=== PATIENT | female | born 1955 | race Two or more races ===

== ENCOUNTER 2021-09-17 17:31 | Inpatient (IN) | payer BC, MEDICARE ==
[~2021-09-17] VITALS: Ht 157.5 cm; Wt 71.4 kg
[2021-09-17] MEDS ORDERED: ONDANSETRON HCL 4 MG/2 ML VIAL IV PRN (23:00)
[2021-09-17] MEDS ORDERED: ACETAMINOPHEN 500 MG TAB PO PRN (23:00)
[2021-09-17] MEDS ORDERED: HYDROcodone-ACET 5/325MG TAB PO PRN (23:00)
[2021-09-17] MEDS ORDERED: DOCUSATE SOD 100 MG CAP PO PRN (23:00)
[2021-09-17] MEDS ORDERED: NITROGLYCERIN 0.4 MG SL TAB SL PRN (23:45)
[2021-09-17] MEDS ORDERED: MORPHINE SULFATE INJECTION 2 MG/ML SYRG IV PRN (23:45)
[2021-09-17 23:50] LABS: Basophils # (auto) 0 10 ^3/uL (0-0.2); Basophils % (auto) 0.5 % (0.0-2.0); Eosinophils # (auto) 0 10 ^3/uL (0-0.8); Eosinophils % (auto) 0.2 % (0.0-7.0); Hematocrit 40.4 % (36.0-46.0); Hemoglobin 13.4 g/dL (12.2-16.2); Lymphocytes # (auto) 1.5 10 ^3/uL (0.4-5.4); Lymphocytes % (auto) 31.6 % (10.0-50.0); Mean Corpuscular Hemoglobin 27.9 pg (28.0-32.0); Mean Corpuscular Hgb Conc. 33.1 g/dL (32.0-36.0); Mean Corpuscular Volume 84.1 fL (80.0-100.0); Monocytes # (auto) 0.4 10 ^3/uL (0-1.3); Monocytes % (auto) 8.8 % (0.0-12.0); Neutrophils # (auto) 2.8 10 ^3/uL (1.6-8.6); Neutrophils % (auto) 58.9 % (37.0-80.0); Red Cell Distribution Width 16.2 % (11.8-14.3); White Blood Cell 4.8 10^3/uL (4.4-10.8)
[2021-09-18 00:21] LABS: Albumin 3.8 g/dL (3.4-5.0); Calcium 8.6 mg/dL (8.5-10.1); Magnesium 2.7 mg/dL (1.6-2.6); Potassium 3.2 mmol/L (3.5-5.1)
[2021-09-18 00:28] LABS: BUN/Creatinine Ratio 19.3; Bilirubin, Total 0.4 mg/dL (0.2-1.0); Total Protein 7.7 g/dL (6.4-8.2)
[2021-09-18 02:35] VITALS: BP 126/71
[2021-09-18] MEDS ORDERED: DexAMETHasone SOD PHOS 10MG/1ML VIAL INJ IV ONE (03:00)
[2021-09-18] MEDS ORDERED: cefTRIAXone 1GM/50ML D5W 50 ML IV ONE (03:00)
[2021-09-18] MEDS ORDERED: AZITHROMYCIN 500MG/ 250ML 250 ML IV ONE (03:00)
[2021-09-18] MEDS: SODIUM CHLORIDE 0.9% 1,000 ML IV SCH ×3 (03:20→20:00)
[2021-09-18] MEDS: ACETAMINOPHEN 325 MG TAB PO PRN (03:22)
[2021-09-18] MEDS: BUDESONIDE (INHALATION) 180 MCG IH IN SCH ×2 (07:28→22:00)
[2021-09-18] MEDS: ALBUTEROL SULF HFA 90MCG INH 200DOSE IN PRN (07:28)
[2021-09-18 07:39] LABS: Basophils # (auto) 0 10 ^3/uL (0-0.2); Basophils % (auto) 0.4 % (0.0-2.0); Eosinophils # (auto) 0 10 ^3/uL (0-0.8); Hematocrit 37.7 % (36.0-46.0); Hemoglobin 12.3 g/dL (12.2-16.2); Lymphocytes # (auto) 1.2 10 ^3/uL (0.4-5.4); Lymphocytes % (auto) 30.5 % (10.0-50.0); Mean Corpuscular Hemoglobin 27.6 pg (28.0-32.0); Mean Corpuscular Hgb Conc. 32.8 g/dL (32.0-36.0); Mean Corpuscular Volume 84.3 fL (80.0-100.0); Monocytes # (auto) 0.2 10 ^3/uL (0-1.3); Monocytes % (auto) 4.2 % (0.0-12.0); Neutrophils # (auto) 2.5 10 ^3/uL (1.6-8.6); Neutrophils % (auto) 64.9 % (37.0-80.0); Nucleated Red Blood Cells % 0.1 %; Red Blood Cells 4.47 10^6/uL (4.0-5.20); Red Cell Distribution Width 16.5 % (11.8-14.3); White Blood Cell 3.8 10^3/uL (4.4-10.8)
[2021-09-18 07:51] LABS: Albumin 3.3 g/dL (3.4-5.0); Calcium 8.5 mg/dL (8.5-10.1); Potassium 3.2 mmol/L (3.5-5.1)
[2021-09-18 07:56] LABS: BUN/Creatinine Ratio 21.9; Bilirubin, Total 0.3 mg/dL (0.2-1.0); Total Protein 6.5 g/dL (6.4-8.2)
[2021-09-18 09:00] VITALS: BP 118/63
[2021-09-18] MEDS: CHOLECALCIFEROL (VITD3) 2,000 UNIT CAP/TAB PO SCH (10:00)
[2021-09-18] MEDS: DOXYCYCLINE 100MG/250ML 250 ML IV SCH ×2 (10:00→21:34)
[2021-09-18] MEDS: ZINC SULFATE 220mg CAP or TAB PO SCH (10:00)
[2021-09-18] MEDS: ENOXAPARIN SOD 40 MG/0.4 ML SYRINGE SC SCH (10:00)
[2021-09-18] MEDS: MULTIPLE VITAMIN TAB PO SCH (10:00)
[2021-09-18] MEDS: FAMOTIDINE (10MG/ML) 2ML VL IV SCH ×2 (10:00→21:34)
[2021-09-18] MEDS: ASCORBIC ACID 1,000 MG TAB PO SCH (10:00)
[2021-09-18 12:25] VITALS: BP 118/63
[2021-09-18 13:00] VITALS: BP 116/59
[2021-09-18 17:00] VITALS: BP 112/61
[2021-09-18 22:00] VITALS: BP 110/67
[2021-09-19] MEDS: ACETAMINOPHEN 325 MG TAB PO PRN ×3 (03:14→21:23)
[2021-09-19 05:00] VITALS: BP 126/62
[2021-09-19] MEDS: BUDESONIDE (INHALATION) 180 MCG IH IN SCH ×2 (07:25→21:29)
[2021-09-19 09:00] VITALS: BP 128/73
[2021-09-19] MEDS: DexAMETHasone SOD PHOS 10MG/1ML VIAL INJ IV SCH (11:06)
[2021-09-19] MEDS: FAMOTIDINE (10MG/ML) 2ML VL IV SCH ×2 (11:06→21:23)
[2021-09-19] MEDS: cefTRIAXone 1GM/50ML D5W 50 ML IV SCH (11:06)
[2021-09-19] MEDS: CHOLECALCIFEROL (VITD3) 2,000 UNIT CAP/TAB PO SCH (11:07)
[2021-09-19] MEDS: ENOXAPARIN SOD 40 MG/0.4 ML SYRINGE SC SCH (11:07)
[2021-09-19] MEDS: ASCORBIC ACID 1,000 MG TAB PO SCH (11:07)
[2021-09-19] MEDS: ZINC SULFATE 220mg CAP or TAB PO SCH (11:07)
[2021-09-19] MEDS: MULTIPLE VITAMIN TAB PO SCH (11:07)
[2021-09-19 12:30] VITALS: BP 148/81
[2021-09-19] MEDS: DOXYCYCLINE 100MG/250ML 250 ML IV SCH ×2 (12:50→21:23)
[2021-09-19 17:00] VITALS: BP 154/78
[2021-09-19 22:00] VITALS: BP 118/64
[2021-09-20] MEDS: SODIUM CHLORIDE 0.9% 1,000 ML IV SCH (00:54)
[2021-09-20 05:00] VITALS: BP 132/74
[2021-09-20] MEDS: ALBUTEROL SULF HFA 90MCG INH 200DOSE IN PRN (06:00)
[2021-09-20] MEDS: BUDESONIDE (INHALATION) 180 MCG IH IN SCH (06:00)
[2021-09-20 09:00] VITALS: BP 144/80
[2021-09-20] MEDS: cefTRIAXone 1GM/50ML D5W 50 ML IV SCH (09:21)
[2021-09-20] MEDS: ACETAMINOPHEN 325 MG TAB PO PRN (09:22)
[2021-09-20] MEDS: DexAMETHasone SOD PHOS 10MG/1ML VIAL INJ IV SCH (09:44)
[2021-09-20] MEDS: FAMOTIDINE (10MG/ML) 2ML VL IV SCH (09:46)
[2021-09-20] MEDS: MULTIPLE VITAMIN TAB PO SCH (09:46)
[2021-09-20] MEDS: ASCORBIC ACID 1,000 MG TAB PO SCH (09:46)
[2021-09-20] MEDS: DOXYCYCLINE 100MG/250ML 250 ML IV SCH (09:46)
[2021-09-20] MEDS: ZINC SULFATE 220mg CAP or TAB PO SCH (09:46)
[2021-09-20] MEDS: CHOLECALCIFEROL (VITD3) 2,000 UNIT CAP/TAB PO SCH (09:47)
[2021-09-20] MEDS: ENOXAPARIN SOD 40 MG/0.4 ML SYRINGE SC SCH (09:48)
[2021-09-20 13:00] VITALS: BP 140/72
[2021-09-20 15:04] VITALS: BP 140/72
== END 2021-09-20 16:57 | disposition home or self-care (01) | DRG 177 ==
LOC: ER 17:31 → OVERFLOW 23:45 → EAST 09-18 04:59
PROVIDERS: ADMIT Nurse Practitioner Family; ATTEND Internal Medicine
DX: U07.1 COVID-19 (principal); J12.82 Pneumonia due to coronavirus disease 2019; N17.9 Acute kidney failure, unspecified; I10 Essential (primary) hypertension; J45.909 Unspecified asthma, uncomplicated; F41.0 Panic disorder [episodic paroxysmal anxiety]; R09.02 Hypoxemia; Z96.651 Presence of right artificial knee joint; M17.10 Unilateral primary osteoarthritis, unspecified knee; F41.9 Anxiety disorder, unspecified; R55 Syncope and collapse; Z80.0 Family history of malignant neoplasm of digestive organs; Z80.3 Family history of malignant neoplasm of breast; Z81.8 Family history of other mental and behavioral disorders; Z85.3 Personal history of malignant neoplasm of breast
CPT/HCPCS: 36415; 70450; 71045; 71275; 80053; 83036; 83605; 83735; 84484; 85025; 85379; 87040; 87426; 93005; 93306; 93970; 94640; G0378; J0696; J1100; J3490

== ENCOUNTER 2021-09-23 07:28 | Inpatient (IN) | payer BC, MEDICARE ==
[~2021-09-23] VITALS: Ht 157.5 cm; Wt 62.6 kg
[2021-09-23 08:09] LABS: Basophils # (auto) 0 10 ^3/uL (0-0.2); Basophils % (auto) 0.3 % (0.0-2.0); Eosinophils # (auto) 0 10 ^3/uL (0-0.8); Hematocrit 42.1 % (36.0-46.0); Hemoglobin 14.1 g/dL (12.2-16.2); Lymphocytes # (auto) 1.4 10 ^3/uL (0.4-5.4); Lymphocytes % (auto) 15.4 % (10.0-50.0); Mean Corpuscular Hgb Conc. 33.5 g/dL (32.0-36.0); Mean Corpuscular Volume 83.5 fL (80.0-100.0); Monocytes # (auto) 0.4 10 ^3/uL (0-1.3); Monocytes % (auto) 4.6 % (0.0-12.0); Neutrophils # (auto) 7.3 10 ^3/uL (1.6-8.6); Neutrophils % (auto) 79.7 % (37.0-80.0); Nucleated Red Blood Cells % 0.1 %; Red Blood Cells 5.04 10^6/uL (4.0-5.20); Red Cell Distribution Width 16.4 % (11.8-14.3); White Blood Cell 9.1 10^3/uL (4.4-10.8)
[2021-09-23] MEDS ORDERED: ACETAMINOPHEN 500 MG TAB PO ONE (08:15)
[2021-09-23 09:16] LABS: Albumin 3.3 g/dL (3.4-5.0); BUN/Creatinine Ratio 23.4; Bilirubin, Total 0.4 mg/dL (0.2-1.0); Calcium 8.8 mg/dL (8.5-10.1); Total Protein 7.6 g/dL (6.4-8.2)
[2021-09-23 09:23] LABS: Potassium 2.8 mmol/L (3.5-5.1)
[2021-09-23] MEDS ORDERED: cefTRIAXone 1GM/50ML D5W 50 ML IV ONE (10:30)
[2021-09-23] MEDS ORDERED: DexAMETHasone SOD PHOS 10MG/1ML VIAL INJ IV ONE (10:30)
[2021-09-23] MEDS ORDERED: DOXYCYCLINE 100MG/250ML 250 ML IV ONE (10:30)
[2021-09-23] MEDS ORDERED: IPRATROPIUM BROM 0.5 MG/2.5ML INH SOL NEB PRN (17:00)
[2021-09-23] MEDS ORDERED: ACETAMINOPHEN 500 MG TAB PO PRN (17:00)
[2021-09-23] MEDS ORDERED: SODIUM CHLORIDE 0.9% 500 ML IV ONE (17:00)
[2021-09-23] MEDS ORDERED: SOD CHL 0.9%/ KCL 40MEQ 1,000 ML IV ONE (17:00)
[2021-09-23] MEDS ORDERED: DOCUSATE CALCIUM 240 MG CAP PO PRN (17:00)
[2021-09-23] MEDS ORDERED: MORPHINE SULFATE INJECTION 2 MG/ML SYRG IV PRN ×2 (17:00)
[2021-09-23] MEDS ORDERED: REMDESIVIR PER PHARMACY 0 ML IV SCH (17:00)
[2021-09-23] MEDS ORDERED: NITROGLYCERIN 0.4 MG SL TAB SL PRN (17:00)
[2021-09-23] MEDS ORDERED: hydrALAZINE HCL 20 MG/ML VL IV PRN (17:00)
[2021-09-23] MEDS ORDERED: REMDESIVIR 200 MG in NS 210ml LOADING DOSE ADULT IV ONE (18:00)
[2021-09-23 20:00] VITALS: BP 142/70
[2021-09-23] MEDS: ALBUTEROL SULF HFA 90MCG INH 200DOSE IN PRN (20:11)
[2021-09-23] MEDS: BUDESONIDE (INHALATION) 180 MCG IH IN SCH (20:11)
[2021-09-23 22:00] VITALS: BP 142/70
[2021-09-23] MEDS: CLINDAMYCIN 300MG IV 50 ML IV SCH (22:15)
[2021-09-23] MEDS: ENOXAPARIN SOD 40 MG/0.4 ML SYRINGE SC SCH (22:15)
[2021-09-24 05:15] VITALS: BP 118/69
[2021-09-24] MEDS: CLINDAMYCIN 300MG IV 50 ML IV SCH (05:56)
[2021-09-24 06:10] LABS: Basophils # (auto) 0 10 ^3/uL (0-0.2); Basophils % (auto) 0.1 % (0.0-2.0); Eosinophils # (auto) 0 10 ^3/uL (0-0.8); Hematocrit 35.2 % (36.0-46.0); Lymphocytes % (auto) 13.7 % (10.0-50.0); Mean Corpuscular Hemoglobin 28.2 pg (28.0-32.0); Mean Corpuscular Hgb Conc. 34.1 g/dL (32.0-36.0); Mean Corpuscular Volume 82.6 fL (80.0-100.0); Monocytes # (auto) 0.4 10 ^3/uL (0-1.3); Monocytes % (auto) 5.8 % (0.0-12.0); Neutrophils # (auto) 5.7 10 ^3/uL (1.6-8.6); Neutrophils % (auto) 80.4 % (37.0-80.0); Red Blood Cells 4.26 10^6/uL (4.0-5.20); Red Cell Distribution Width 16.1 % (11.8-14.3); White Blood Cell 7.1 10^3/uL (4.4-10.8)
[2021-09-24 06:30] LABS: Potassium 3.7 mmol/L (3.5-5.1)
[2021-09-24 06:53] LABS: Albumin 2.4 g/dL (3.4-5.0); BUN/Creatinine Ratio 38.8; Bilirubin, Total 0.3 mg/dL (0.2-1.0); CRP High Sensitivity 11.1 mg/dL (< 0.3); Calcium 7.6 mg/dL (8.5-10.1); Magnesium 2.3 mg/dL (1.6-2.6); Total Protein 5.7 g/dL (6.4-8.2)
[2021-09-24] MEDS: ALBUTEROL SULF HFA 90MCG INH 200DOSE IN PRN ×2 (07:22→19:28)
[2021-09-24] MEDS: BUDESONIDE (INHALATION) 180 MCG IH IN SCH ×2 (07:22→19:21)
[2021-09-24 07:47] LABS: Thyroid Stimulating Hormone 0.49 uIU/mL (0.358-3.74)
[2021-09-24 07:57] LABS: Urine Bacteria NONE SEEN /hpf (None Seen); Urine Blood Negative /uL (Negative); Urine Specific Gravity 1.028 (1.001-1.035); Urine WBC 40 /hpf (0 - 5)
[2021-09-24 09:00] VITALS: BP 141/72
[2021-09-24] MEDS: ZINC SULFATE 220mg CAP or TAB PO SCH (09:05)
[2021-09-24] MEDS: DexAMETHasone SOD PHOS 10MG/1ML VIAL INJ IV SCH (09:05)
[2021-09-24] MEDS: AZITHROMYCIN 500MG/ 250ML 250 ML IV SCH (09:05)
[2021-09-24] MEDS: ASCORBIC ACID 1,000 MG TAB PO SCH (09:06)
[2021-09-24] MEDS: PANTOPRAZOLE 40 MG TAB PO SCH (09:06)
[2021-09-24] MEDS: CHOLECALCIFEROL (VITD3) 2,000 UNIT CAP/TAB PO SCH (09:06)
[2021-09-24] MEDS: ENOXAPARIN SOD 40 MG/0.4 ML SYRINGE SC SCH ×2 (09:06→22:03)
[2021-09-24] MEDS: ONDANSETRON HCL 4 MG/2 ML VIAL IV PRN (09:23)
[2021-09-24] MEDS ORDERED: LOSA25TA38 PO (09:56)
[2021-09-24] MEDS ORDERED: CAR3125T PO (09:56)
[2021-09-24] MEDS ORDERED: OMEP20TA PO (09:56)
[2021-09-24] MEDS ORDERED: LEV50T PO (09:56)
[2021-09-24 12:30] VITALS: BP 130/66
[2021-09-24] MEDS ORDERED: LEVOTHYROXINE SODIUM 50 MCG TAB PO ONE (13:00)
[2021-09-24] MEDS: REMDESIVIR 100mg 100 MG in SODIUM CHL 0.9% 230 ML IV SCH (15:49)
[2021-09-24 17:00] VITALS: BP 137/74
[2021-09-24 20:00] VITALS: BP 120/72
[2021-09-24 22:00] VITALS: BP 120/72
[2021-09-25] MEDS: ONDANSETRON HCL 4 MG/2 ML VIAL IV PRN (04:08)
[2021-09-25 05:00] VITALS: BP 125/73
[2021-09-25] MEDS: LEVOTHYROXINE SODIUM 50 MCG TAB PO SCH (06:58)
[2021-09-25] MEDS: BUDESONIDE (INHALATION) 180 MCG IH IN SCH ×2 (06:58→20:36)
[2021-09-25] MEDS: ALBUTEROL SULF HFA 90MCG INH 200DOSE IN PRN ×2 (06:58→20:36)
[2021-09-25 07:01] LABS: Albumin 2.4 g/dL (3.4-5.0); Calcium 8.4 mg/dL (8.5-10.1); Potassium 3.9 mmol/L (3.5-5.1)
[2021-09-25 07:03] LABS: BUN/Creatinine Ratio 37.7
[2021-09-25 07:06] LABS: Bilirubin, Total 0.3 mg/dL (0.2-1.0); Total Protein 5.6 g/dL (6.4-8.2)
[2021-09-25 09:00] VITALS: BP 149/83
[2021-09-25] MEDS: CHOLECALCIFEROL (VITD3) 2,000 UNIT CAP/TAB PO SCH (10:50)
[2021-09-25] MEDS: ASCORBIC ACID 1,000 MG TAB PO SCH (10:50)
[2021-09-25] MEDS: PANTOPRAZOLE 40 MG TAB PO SCH (10:50)
[2021-09-25] MEDS: ZINC SULFATE 220mg CAP or TAB PO SCH (10:50)
[2021-09-25] MEDS: ENOXAPARIN SOD 40 MG/0.4 ML SYRINGE SC SCH ×2 (10:51→21:18)
[2021-09-25] MEDS: AZITHROMYCIN 500MG/ 250ML 250 ML IV SCH (10:51)
[2021-09-25] MEDS: DexAMETHasone SOD PHOS 10MG/1ML VIAL INJ IV SCH (10:51)
[2021-09-25] MEDS ORDERED: FUROSEMIDE 20 MG/2 ML VIAL IV ONE (11:45)
[2021-09-25] MEDS ORDERED: POTASSIUM CHL 20 Meq TABLET PO ONE (11:45)
[2021-09-25 13:00] VITALS: BP 138/76
[2021-09-25] MEDS: REMDESIVIR 100mg 100 MG in SODIUM CHL 0.9% 230 ML IV SCH (15:18)
[2021-09-25 16:40] VITALS: BP 135/80
[2021-09-25 22:00] VITALS: BP 121/60
[2021-09-26 05:00] VITALS: BP 134/74
[2021-09-26 06:02] LABS: Potassium 3.6 mmol/L (3.5-5.1)
[2021-09-26 06:13] LABS: Albumin 2.6 g/dL (3.4-5.0); BUN/Creatinine Ratio 40.6; Bilirubin, Total 0.3 mg/dL (0.2-1.0); Calcium 8.2 mg/dL (8.5-10.1)
[2021-09-26] MEDS: LEVOTHYROXINE SODIUM 50 MCG TAB PO SCH (06:28)
[2021-09-26] MEDS: BUDESONIDE (INHALATION) 180 MCG IH IN SCH ×2 (06:41→22:14)
[2021-09-26] MEDS: ALBUTEROL SULF HFA 90MCG INH 200DOSE IN PRN ×2 (06:42→22:14)
[2021-09-26 09:00] VITALS: BP 136/74
[2021-09-26] MEDS: DexAMETHasone SOD PHOS 10MG/1ML VIAL INJ IV SCH (09:42)
[2021-09-26] MEDS: FUROSEMIDE 20 MG/2 ML VIAL IV SCH (09:43)
[2021-09-26] MEDS: ZINC SULFATE 220mg CAP or TAB PO SCH (09:44)
[2021-09-26] MEDS: CHOLECALCIFEROL (VITD3) 2,000 UNIT CAP/TAB PO SCH (09:44)
[2021-09-26] MEDS: ASCORBIC ACID 1,000 MG TAB PO SCH (09:44)
[2021-09-26] MEDS: PANTOPRAZOLE 40 MG TAB PO SCH (09:44)
[2021-09-26] MEDS: AZITHROMYCIN 500MG/ 250ML 250 ML IV SCH (09:45)
[2021-09-26] MEDS: POTASSIUM CHL 20 Meq TABLET PO SCH (09:45)
[2021-09-26] MEDS: ENOXAPARIN SOD 40 MG/0.4 ML SYRINGE SC SCH ×2 (09:46→21:44)
[2021-09-26 13:00] VITALS: BP 144/75
[2021-09-26] MEDS: REMDESIVIR 100mg 100 MG in SODIUM CHL 0.9% 230 ML IV SCH (15:38)
[2021-09-26 17:00] VITALS: BP 125/77
[2021-09-26] MEDS ORDERED: NITROFURANTOIN 100 mg CAP PO SCH (22:00)
[2021-09-26 22:26] VITALS: BP 142/71
[2021-09-27 05:25] VITALS: BP 152/82
[2021-09-27] MEDS: LEVOTHYROXINE SODIUM 50 MCG TAB PO SCH (06:18)
[2021-09-27 06:42] LABS: Basophils # (auto) 0 10 ^3/uL (0-0.2); Basophils % (auto) 0.3 % (0.0-2.0); Eosinophils # (auto) 0 10 ^3/uL (0-0.8); Hematocrit 36.7 % (36.0-46.0); Hemoglobin 12.4 g/dL (12.2-16.2); Lymphocytes % (auto) 21.7 % (10.0-50.0); Mean Corpuscular Hemoglobin 27.7 pg (28.0-32.0); Mean Corpuscular Hgb Conc. 33.7 g/dL (32.0-36.0); Mean Corpuscular Volume 82.2 fL (80.0-100.0); Monocytes # (auto) 0.5 10 ^3/uL (0-1.3); Monocytes % (auto) 11.4 % (0.0-12.0); Neutrophils # (auto) 3.2 10 ^3/uL (1.6-8.6); Neutrophils % (auto) 66.6 % (37.0-80.0); Nucleated Red Blood Cells % 0.1 %; Red Blood Cells 4.47 10^6/uL (4.0-5.20); Red Cell Distribution Width 16.3 % (11.8-14.3); White Blood Cell 4.8 10^3/uL (4.4-10.8)
[2021-09-27 06:44] LABS: Albumin 2.7 g/dL (3.4-5.0); Calcium 8.3 mg/dL (8.5-10.1); Potassium 3.7 mmol/L (3.5-5.1)
[2021-09-27 06:49] LABS: BUN/Creatinine Ratio 53.6; Bilirubin, Total 0.4 mg/dL (0.2-1.0)
[2021-09-27] MEDS: BUDESONIDE (INHALATION) 180 MCG IH IN SCH ×2 (07:58→23:15)
[2021-09-27] MEDS: ALBUTEROL SULF HFA 90MCG INH 200DOSE IN PRN ×2 (07:58→23:15)
[2021-09-27 09:00] VITALS: BP 129/73
[2021-09-27] MEDS: ASCORBIC ACID 1,000 MG TAB PO SCH (09:14)
[2021-09-27] MEDS: PANTOPRAZOLE 40 MG TAB PO SCH (09:14)
[2021-09-27] MEDS: POTASSIUM CHL 20 Meq TABLET PO SCH (09:14)
[2021-09-27] MEDS: CHOLECALCIFEROL (VITD3) 2,000 UNIT CAP/TAB PO SCH (09:14)
[2021-09-27] MEDS: ENOXAPARIN SOD 40 MG/0.4 ML SYRINGE SC SCH ×2 (09:14→20:52)
[2021-09-27] MEDS: DexAMETHasone SOD PHOS 10MG/1ML VIAL INJ IV SCH (09:14)
[2021-09-27] MEDS: ZINC SULFATE 220mg CAP or TAB PO SCH (09:14)
[2021-09-27] MEDS: AZITHROMYCIN 500MG/ 250ML 250 ML IV SCH (09:15)
[2021-09-27] MEDS: FUROSEMIDE 20 MG/2 ML VIAL IV SCH (09:23)
[2021-09-27] MEDS ORDERED: ACETAMINOPHEN 500 MG TAB PO PRN (12:15)
[2021-09-27 12:51] VITALS: BP 120/75
[2021-09-27] MEDS: REMDESIVIR 100mg 100 MG in SODIUM CHL 0.9% 230 ML IV SCH (15:39)
[2021-09-27 17:00] VITALS: BP 139/77
[2021-09-27 22:00] VITALS: BP 127/74
[2021-09-28 05:00] VITALS: BP 128/65
[2021-09-28] MEDS: LEVOTHYROXINE SODIUM 50 MCG TAB PO SCH (06:04)
[2021-09-28 07:15] LABS: Albumin 2.8 g/dL (3.4-5.0); Calcium 8.6 mg/dL (8.5-10.1); Potassium 3.9 mmol/L (3.5-5.1)
[2021-09-28 07:19] LABS: BUN/Creatinine Ratio 60.7
[2021-09-28 07:20] LABS: Bilirubin, Total 0.4 mg/dL (0.2-1.0); Total Protein 6.2 g/dL (6.4-8.2)
[2021-09-28] MEDS: BUDESONIDE (INHALATION) 180 MCG IH IN SCH ×2 (08:39→20:08)
[2021-09-28] MEDS: ALBUTEROL SULF HFA 90MCG INH 200DOSE IN PRN (08:40)
[2021-09-28 09:00] VITALS: BP 135/81
[2021-09-28] MEDS: DexAMETHasone SOD PHOS 10MG/1ML VIAL INJ IV SCH (10:01)
[2021-09-28] MEDS: AZITHROMYCIN 500MG/ 250ML 250 ML IV SCH (10:02)
[2021-09-28] MEDS: FUROSEMIDE 20 MG/2 ML VIAL IV SCH (10:02)
[2021-09-28] MEDS: ZINC SULFATE 220mg CAP or TAB PO SCH (10:03)
[2021-09-28] MEDS: ASCORBIC ACID 1,000 MG TAB PO SCH (10:04)
[2021-09-28] MEDS: PANTOPRAZOLE 40 MG TAB PO SCH (10:04)
[2021-09-28] MEDS: CHOLECALCIFEROL (VITD3) 2,000 UNIT CAP/TAB PO SCH (10:04)
[2021-09-28] MEDS: ENOXAPARIN SOD 40 MG/0.4 ML SYRINGE SC SCH ×2 (10:04→21:11)
[2021-09-28] MEDS: POTASSIUM CHL 20 Meq TABLET PO SCH (10:04)
[2021-09-28 12:53] VITALS: BP 127/58
[2021-09-28 17:07] VITALS: BP 115/66
[2021-09-28] MEDS: Ensure HIGH Protein Chocolate 8oz Bottle PO SCH (18:00)
[2021-09-28 21:30] VITALS: BP 123/67
[2021-09-28 22:00] VITALS: BP 130/78
[2021-09-29 04:48] VITALS: BP 110/69
[2021-09-29] MEDS: LEVOTHYROXINE SODIUM 50 MCG TAB PO SCH (06:11)
[2021-09-29] MEDS: BUDESONIDE (INHALATION) 180 MCG IH IN SCH ×2 (06:27→23:10)
[2021-09-29] MEDS: ALBUTEROL SULF HFA 90MCG INH 200DOSE IN PRN ×2 (06:27→23:10)
[2021-09-29 08:00] VITALS: BP 126/68
[2021-09-29] MEDS: Ensure HIGH Protein Chocolate 8oz Bottle PO SCH ×3 (08:00→17:45)
[2021-09-29] MEDS: DexAMETHasone SOD PHOS 10MG/1ML VIAL INJ IV SCH (09:46)
[2021-09-29] MEDS: FUROSEMIDE 20 MG/2 ML VIAL IV SCH (09:47)
[2021-09-29] MEDS: PANTOPRAZOLE 40 MG TAB PO SCH (09:47)
[2021-09-29] MEDS: ENOXAPARIN SOD 40 MG/0.4 ML SYRINGE SC SCH ×2 (09:47→22:33)
[2021-09-29] MEDS: CHOLECALCIFEROL (VITD3) 2,000 UNIT CAP/TAB PO SCH (09:48)
[2021-09-29] MEDS: ASCORBIC ACID 1,000 MG TAB PO SCH (09:48)
[2021-09-29] MEDS: POTASSIUM CHL 20 Meq TABLET PO SCH (09:48)
[2021-09-29] MEDS: ZINC SULFATE 220mg CAP or TAB PO SCH (09:49)
[2021-09-29 12:00] VITALS: BP 123/77
[2021-09-29] MEDS ORDERED: NITROFURANTOIN 100 mg CAP PO ONE (15:15)
[2021-09-29 16:00] VITALS: BP 124/59
[2021-09-29 22:00] VITALS: BP 141/81
[2021-09-29] MEDS: NITROFURANTOIN 100 mg CAP PO SCH (22:36)
[2021-09-30 05:00] VITALS: BP 131/70
[2021-09-30] MEDS: LEVOTHYROXINE SODIUM 50 MCG TAB PO SCH (06:06)
[2021-09-30 06:49] LABS: Basophils # (auto) 0 10 ^3/uL (0-0.2); Basophils % (auto) 0.1 % (0.0-2.0); Eosinophils # (auto) 0 10 ^3/uL (0-0.8); Hematocrit 38.8 % (36.0-46.0); Hemoglobin 13.5 g/dL (12.2-16.2); Lymphocytes # (auto) 1.5 10 ^3/uL (0.4-5.4); Lymphocytes % (auto) 16.9 % (10.0-50.0); Mean Corpuscular Hemoglobin 28.7 pg (28.0-32.0); Mean Corpuscular Hgb Conc. 34.9 g/dL (32.0-36.0); Mean Corpuscular Volume 82.1 fL (80.0-100.0); Monocytes # (auto) 0.7 10 ^3/uL (0-1.3); Monocytes % (auto) 7.5 % (0.0-12.0); Neutrophils # (auto) 6.6 10 ^3/uL (1.6-8.6); Neutrophils % (auto) 75.5 % (37.0-80.0); Nucleated Red Blood Cells % 0.1 %; Red Blood Cells 4.72 10^6/uL (4.0-5.20); Red Cell Distribution Width 15.8 % (11.8-14.3); White Blood Cell 8.7 10^3/uL (4.4-10.8)
[2021-09-30 06:51] LABS: Potassium 4.6 mmol/L (3.5-5.1)
[2021-09-30 06:56] LABS: BUN/Creatinine Ratio 60.6; Calcium 8.7 mg/dL (8.5-10.1)
[2021-09-30] MEDS: ALBUTEROL SULF HFA 90MCG INH 200DOSE IN PRN ×2 (07:45→19:33)
[2021-09-30] MEDS: BUDESONIDE (INHALATION) 180 MCG IH IN SCH ×2 (07:45→19:33)
[2021-09-30 08:00] VITALS: BP 142/68
[2021-09-30] MEDS: ZINC SULFATE 220mg CAP or TAB PO SCH (10:00)
[2021-09-30] MEDS: PANTOPRAZOLE 40 MG TAB PO SCH (10:00)
[2021-09-30] MEDS: ASCORBIC ACID 1,000 MG TAB PO SCH (10:00)
[2021-09-30] MEDS: NITROFURANTOIN 100 mg CAP PO SCH ×2 (10:00→22:02)
[2021-09-30] MEDS: POTASSIUM CHL 20 Meq TABLET PO SCH (10:00)
[2021-09-30] MEDS: CHOLECALCIFEROL (VITD3) 2,000 UNIT CAP/TAB PO SCH (10:00)
[2021-09-30] MEDS: FUROSEMIDE 20 MG/2 ML VIAL IV SCH (10:00)
[2021-09-30] MEDS: ENOXAPARIN SOD 40 MG/0.4 ML SYRINGE SC SCH ×2 (10:00→22:01)
[2021-09-30] MEDS: DexAMETHasone SOD PHOS 10MG/1ML VIAL INJ IV SCH (10:53)
[2021-09-30] MEDS: Ensure HIGH Protein Chocolate 8oz Bottle PO SCH ×3 (10:53→18:00)
[2021-09-30 12:00] VITALS: BP 124/71
[2021-09-30 17:00] VITALS: BP 127/65
[2021-09-30 20:00] VITALS: BP 113/68
[2021-09-30 22:28] VITALS: BP 113/68
[2021-10-01 05:19] VITALS: BP 144/88
[2021-10-01] MEDS: ALBUTEROL SULF HFA 90MCG INH 200DOSE IN PRN (05:50)
[2021-10-01] MEDS: BUDESONIDE (INHALATION) 180 MCG IH IN SCH ×2 (05:50→22:00)
[2021-10-01] MEDS: LEVOTHYROXINE SODIUM 50 MCG TAB PO SCH (06:16)
[2021-10-01 08:52] VITALS: BP 140/84
[2021-10-01] MEDS: FUROSEMIDE 20 MG/2 ML VIAL IV SCH (10:00)
[2021-10-01] MEDS: POTASSIUM CHL 20 Meq TABLET PO SCH (10:00)
[2021-10-01] MEDS: PANTOPRAZOLE 40 MG TAB PO SCH (10:00)
[2021-10-01] MEDS: DexAMETHasone SOD PHOS 10MG/1ML VIAL INJ IV SCH (10:13)
[2021-10-01] MEDS: Ensure HIGH Protein Chocolate 8oz Bottle PO SCH ×3 (10:13→18:00)
[2021-10-01] MEDS: CHOLECALCIFEROL (VITD3) 2,000 UNIT CAP/TAB PO SCH (10:14)
[2021-10-01] MEDS: ZINC SULFATE 220mg CAP or TAB PO SCH (10:14)
[2021-10-01] MEDS: NITROFURANTOIN 100 mg CAP PO SCH ×2 (10:14→22:28)
[2021-10-01] MEDS: ASCORBIC ACID 1,000 MG TAB PO SCH (10:14)
[2021-10-01] MEDS: ENOXAPARIN SOD 40 MG/0.4 ML SYRINGE SC SCH ×2 (10:15→22:28)
[2021-10-01 13:00] VITALS: BP 142/76
[2021-10-01 17:00] VITALS: BP 118/73
[2021-10-01 22:00] VITALS: BP 118/77
[2021-10-02 05:00] VITALS: BP 133/77
[2021-10-02] MEDS: LEVOTHYROXINE SODIUM 50 MCG TAB PO SCH (06:15)
[2021-10-02] MEDS: ALBUTEROL SULF HFA 90MCG INH 200DOSE IN PRN ×2 (06:25→20:13)
[2021-10-02] MEDS: BUDESONIDE (INHALATION) 180 MCG IH IN SCH ×2 (06:26→20:13)
[2021-10-02 09:00] VITALS: BP 120/69
[2021-10-02] MEDS: ENOXAPARIN SOD 40 MG/0.4 ML SYRINGE SC SCH ×2 (09:28→21:15)
[2021-10-02] MEDS: FUROSEMIDE 20 MG/2 ML VIAL IV SCH (09:29)
[2021-10-02] MEDS: CHOLECALCIFEROL (VITD3) 2,000 UNIT CAP/TAB PO SCH (09:29)
[2021-10-02] MEDS: DexAMETHasone SOD PHOS 10MG/1ML VIAL INJ IV SCH (09:29)
[2021-10-02] MEDS: PANTOPRAZOLE 40 MG TAB PO SCH (09:30)
[2021-10-02] MEDS: POTASSIUM CHL 20 Meq TABLET PO SCH (09:30)
[2021-10-02] MEDS: ZINC SULFATE 220mg CAP or TAB PO SCH (09:30)
[2021-10-02] MEDS: Ensure HIGH Protein Chocolate 8oz Bottle PO SCH ×3 (09:31→18:06)
[2021-10-02] MEDS: ASCORBIC ACID 1,000 MG TAB PO SCH (09:33)
[2021-10-02] MEDS: NITROFURANTOIN 100 mg CAP PO SCH ×2 (10:50→21:15)
[2021-10-02 13:00] VITALS: BP 126/66
[2021-10-02 15:54] LABS: Urine Bacteria NONE SEEN /hpf (None Seen); Urine Blood Negative /uL (Negative); Urine Hyaline Cast FEW /lpf (0 - 2); Urine Mucus FEW (None Seen); Urine Specific Gravity 1.029 (1.001-1.035); Urine WBC 5 /hpf (0 - 5)
[2021-10-02 17:00] VITALS: BP 120/75
[2021-10-02 22:00] VITALS: BP 109/70
[2021-10-03 05:00] VITALS: BP 129/64
[2021-10-03] MEDS: LEVOTHYROXINE SODIUM 50 MCG TAB PO SCH (05:58)
[2021-10-03] MEDS: ALBUTEROL SULF HFA 90MCG INH 200DOSE IN PRN (06:00)
[2021-10-03] MEDS: BUDESONIDE (INHALATION) 180 MCG IH IN SCH ×2 (06:00→19:39)
[2021-10-03 09:00] VITALS: BP 122/71
[2021-10-03] MEDS: Ensure HIGH Protein Chocolate 8oz Bottle PO SCH ×3 (10:28→18:08)
[2021-10-03] MEDS: ENOXAPARIN SOD 40 MG/0.4 ML SYRINGE SC SCH ×2 (10:28→21:55)
[2021-10-03] MEDS: DexAMETHasone SOD PHOS 10MG/1ML VIAL INJ IV SCH (10:28)
[2021-10-03] MEDS: ASCORBIC ACID 1,000 MG TAB PO SCH (10:29)
[2021-10-03] MEDS: FUROSEMIDE 20 MG TAB PO SCH (10:29)
[2021-10-03] MEDS: POTASSIUM CHL 20 Meq TABLET PO SCH (10:29)
[2021-10-03] MEDS: ZINC SULFATE 220mg CAP or TAB PO SCH (10:29)
[2021-10-03] MEDS: PANTOPRAZOLE 40 MG TAB PO SCH (10:29)
[2021-10-03] MEDS: CHOLECALCIFEROL (VITD3) 2,000 UNIT CAP/TAB PO SCH (10:29)
[2021-10-03] MEDS: NITROFURANTOIN 100 mg CAP PO SCH ×2 (10:30→21:55)
[2021-10-03 13:00] VITALS: BP 119/70
[2021-10-03 17:00] VITALS: BP 119/68
[2021-10-03 22:00] VITALS: BP 111/68
[2021-10-04 05:00] VITALS: BP 122/69
[2021-10-04 05:23] LABS: Basophils # (auto) 0 10 ^3/uL (0-0.2); Basophils % (auto) 0.2 % (0.0-2.0); Eosinophils # (auto) 0 10 ^3/uL (0-0.8); Hematocrit 39.7 % (36.0-46.0); Hemoglobin 13.4 g/dL (12.2-16.2); Lymphocytes # (auto) 1.6 10 ^3/uL (0.4-5.4); Lymphocytes % (auto) 15.7 % (10.0-50.0); Mean Corpuscular Hemoglobin 28.1 pg (28.0-32.0); Mean Corpuscular Hgb Conc. 33.7 g/dL (32.0-36.0); Mean Corpuscular Volume 83.6 fL (80.0-100.0); Monocytes # (auto) 0.6 10 ^3/uL (0-1.3); Monocytes % (auto) 6.1 % (0.0-12.0); Red Blood Cells 4.74 10^6/uL (4.0-5.20); Red Cell Distribution Width 15.9 % (11.8-14.3); White Blood Cell 10.2 10^3/uL (4.4-10.8)
[2021-10-04 05:45] LABS: BUN/Creatinine Ratio 65.2; Calcium 8.7 mg/dL (8.5-10.1); Potassium 4.3 mmol/L (3.5-5.1)
[2021-10-04] MEDS: LEVOTHYROXINE SODIUM 50 MCG TAB PO SCH (05:50)
[2021-10-04] MEDS: ALBUTEROL SULF HFA 90MCG INH 200DOSE IN PRN ×2 (06:07→20:46)
[2021-10-04] MEDS: BUDESONIDE (INHALATION) 180 MCG IH IN SCH ×2 (06:07→20:46)
[2021-10-04] MEDS: Ensure HIGH Protein Chocolate 8oz Bottle PO SCH ×3 (08:30→18:48)
[2021-10-04 09:00] VITALS: BP 128/71
[2021-10-04] MEDS: DexAMETHasone SOD PHOS 10MG/1ML VIAL INJ IV SCH (09:15)
[2021-10-04] MEDS: ENOXAPARIN SOD 40 MG/0.4 ML SYRINGE SC SCH ×2 (09:15→21:01)
[2021-10-04] MEDS: PANTOPRAZOLE 40 MG TAB PO SCH (09:16)
[2021-10-04] MEDS: ZINC SULFATE 220mg CAP or TAB PO SCH (09:16)
[2021-10-04] MEDS: NITROFURANTOIN 100 mg CAP PO SCH ×2 (09:16→21:01)
[2021-10-04] MEDS: FUROSEMIDE 20 MG TAB PO SCH (09:16)
[2021-10-04] MEDS: CHOLECALCIFEROL (VITD3) 2,000 UNIT CAP/TAB PO SCH (09:17)
[2021-10-04] MEDS: ASCORBIC ACID 1,000 MG TAB PO SCH (09:17)
[2021-10-04] MEDS: POTASSIUM CHL 20 Meq TABLET PO SCH (09:18)
[2021-10-04] MEDS ORDERED: CHOL1CAP47 PO (11:46)
[2021-10-04] MEDS ORDERED: ASCO10003 PO (11:46)
[2021-10-04] MEDS ORDERED: ALBUAER3 IN (11:47)
[2021-10-04] MEDS ORDERED: DEXA4TAB90 PO ×2 (11:47)
[2021-10-04 13:00] VITALS: BP 104/57
[2021-10-04 17:00] VITALS: BP 111/61
[2021-10-04 22:00] VITALS: BP 117/61
[2021-10-05 04:50] VITALS: BP 111/62
[2021-10-05] MEDS: LEVOTHYROXINE SODIUM 50 MCG TAB PO SCH (05:55)
[2021-10-05] MEDS: BUDESONIDE (INHALATION) 180 MCG IH IN SCH (06:18)
[2021-10-05] MEDS: ALBUTEROL SULF HFA 90MCG INH 200DOSE IN PRN (06:18)
[2021-10-05] MEDS: Ensure HIGH Protein Chocolate 8oz Bottle PO SCH ×2 (08:15→12:15)
[2021-10-05 09:00] VITALS: BP 126/66
[2021-10-05] MEDS: POTASSIUM CHL 20 Meq TABLET PO SCH (10:00)
[2021-10-05] MEDS: ZINC SULFATE 220mg CAP or TAB PO SCH (10:00)
[2021-10-05] MEDS: DexAMETHasone SOD PHOS 10MG/1ML VIAL INJ IV SCH (10:00)
[2021-10-05] MEDS: NITROFURANTOIN 100 mg CAP PO SCH (10:01)
[2021-10-05] MEDS: CHOLECALCIFEROL (VITD3) 2,000 UNIT CAP/TAB PO SCH (10:01)
[2021-10-05] MEDS: ASCORBIC ACID 1,000 MG TAB PO SCH (10:01)
[2021-10-05] MEDS: FUROSEMIDE 20 MG TAB PO SCH (10:01)
[2021-10-05] MEDS: PANTOPRAZOLE 40 MG TAB PO SCH (10:01)
[2021-10-05] MEDS: ENOXAPARIN SOD 40 MG/0.4 ML SYRINGE SC SCH (10:02)
[2021-10-05 12:54] VITALS: BP 106/56
== END 2021-10-05 14:00 | disposition home health service (06) | DRG 871 ==
LOC: ER 07:28 → EAST 16:55 → TELE-EAST 09-24 21:55
PROVIDERS: ADMIT Family Medicine; ATTEND Internal Medicine Pulmonary Disease
PROC: XW033E5 Introduction of Remdesivir Anti-infective into Peripheral Vein, Percutaneous Approach, New Technology Group 5 (ICD-10-PCS; principal; 2021-09-23)
PROC: 05HC33Z Insertion of Infusion Device into Left Basilic Vein, Percutaneous Approach (ICD-10-PCS; 2021-09-28)
PROC: B54NZZA Ultrasonography of Left Upper Extremity Veins, Guidance (ICD-10-PCS; 2021-09-28)
DX: A41.89 Other specified sepsis (principal); U07.1 COVID-19; J12.82 Pneumonia due to coronavirus disease 2019; J96.01 Acute respiratory failure with hypoxia; N39.0 Urinary tract infection, site not specified; E87.0 Hyperosmolality and hypernatremia; E87.6 Hypokalemia; E86.0 Dehydration; R73.9 Hyperglycemia, unspecified; I10 Essential (primary) hypertension; E66.9 Obesity, unspecified; B95.2 Enterococcus as the cause of diseases classified elsewhere; E03.9 Hypothyroidism, unspecified; D89.839 Cytokine release syndrome, grade unspecified; J45.909 Unspecified asthma, uncomplicated; Z80.0 Family history of malignant neoplasm of digestive organs; Z90.711 Acquired absence of uterus with remaining cervical stump; Z68.25 Body mass index [BMI] 25.0-25.9, adult; Z23 Encounter for immunization
CPT/HCPCS: 36415; 36600; 71045; 80048; 80053; 81001; 82306; 82728; 82805; 83605; 83615; 83735; 83880; 84443; 84484; 85025; 85379; 86141; 87040; 87081; 87086; 87088; 87186; 87426; 94640; 96365; 96368; 96375; 97110; 97116; 97530; 99291; G0378; J0696; J1100; J2405; J3490